=== PATIENT | female | born 1960 | race African-American/Black ===

== ENCOUNTER 2018-06-27 12:09 | Inpatient (IN) | payer MEDICAID ==
[~2018-06-27] VITALS: Ht 162.6 cm; Wt 59.0 kg
[~2018-06-27 12:09] MED LIST: ALEN70TA46 PO; ATOR40TA70 PO; CHOL100046 PO; GABA-529 PO; INSU3INS6 SUBCUT; LOSA50TA20 PO; METF-416 PO
[2018-06-27] MEDS ORDERED: MORPHINE SULFATE 4 MG/ML CPJ (NOT FOR IM USE) IV STA (14:54)
[2018-06-27] MEDS ORDERED: SODIUM CHLORIDE 0.9% 1,000 ML IV ONE (14:54)
[2018-06-27] MEDS ORDERED: ONDANSETRON HCL 4MG/2ML INJ IV STA (14:54)
[2018-06-27] MEDS ORDERED: HYDRALAZINE 20MG/ML VIAL IV ONE ×2 (15:00→17:00)
[2018-06-27] MEDS ORDERED: MORPHINE SULFATE 10 MG/ML CPJ IV NR (15:30)
[2018-06-27 16:06] LABS: BASOPHILS % 0.7 % (0.0-2.0); HEMATOCRIT. 48.8 % (36.0-48.0); HEMOGLOBIN. 15.6 g/dL (12.0-16.0); LYMPHOCYTES % 11.4 % (20.0-50.0); MEAN CORPUSCULAR HEMOGLOBIN 24.1 pg (28.0-32.0); MEAN CORPUSCULAR VOLUME 75.5 fL (81.0-99.0); MEAN PLATELET VOLUME 9.8 fl (7.4-10.4); MONOCYTES % 2.4 % (2.0-8.0); NEUTROPHILS % 85.5 % (40.0-76.0); PLATELET 271 x1000/uL (130-400); RED BLOOD CELL COUNT 6.46 mill/uL (4.2-5.4); RED CELL DISTRIBUTION WIDTH 14.6 % (11.6-14.6)
[2018-06-27 16:10] LABS: CHLORIDE 107 mEq/L (98-107)
[2018-06-27 16:12] LABS: PARTIAL THROMBOPLASTIN TIME 27.6 sec (23.4-31.0); PROTHROMBIN TIME 10.5 sec (9.1-11.1)
[2018-06-27 16:15] LABS: ETHANOL BLOOD < 10 mg/dL
[2018-06-27 17:26] LABS: CLARITY URINE CLEAR (CLEAR); COLOR URINE YELLOW (YELLOW); KETONES URINE 1+ (NEGATIVE); LEUKOCYTE ESTERASE URINE NEGATIVE (NEGATIVE); NITRITE URINE NEGATIVE (NEGATIVE); OCCULT BLOOD URINE 2+ (NEGATIVE); PROTEIN URINE 4+ (NEGATIVE); SPECIFIC GRAVITY URINE 1.022 (1.005-1.030); UROBILINOGEN URINE 0.2 E.U./dL (0.2-1.0)
[2018-06-27] MEDS ORDERED: METRONIDAZOLE 500 MG PREMIX 100 ML IV ONE (17:30)
[2018-06-27] MEDS ORDERED: LEVOFLOXACIN 750MG PREMIX 150 ML IV ONE (17:30)
[2018-06-27 17:44] LABS: *AMPHETAMINES SCREEN URINE NEGATIVE (NEGATIVE)
[2018-06-27 17:45] LABS: *BARBITURATES SCREEN URINE NEGATIVE (NEGATIVE); *BENZODIAZEPINES SCREEN URINE NEGATIVE (NEGATIVE); *COCAINE SCREEN URINE NEGATIVE (NEGATIVE); CANNABINOID URINE SCREEN PRESUMTIVE POSITIVE (NEGATIVE); METHADONE URINE SCREEN NEGATIVE (NEGATIVE); OPIATES URINE SCREEN PRESUMTIVE POSITIVE (NEGATIVE)
[2018-06-27 17:46] LABS: PHENCYCLIDINE URINE SCREEN NEGATIVE (NEGATIVE)
[2018-06-27] MEDS ORDERED: LABETALOL 5MG/ML SYR 20 MG/4 ML SYRINGE IV ONE (18:00)
[2018-06-27] MEDS ORDERED: LABETALOL HCL 20MG/4ML CARPUJECT IV NR (20:15)
[2018-06-27] MEDS ORDERED: CLONIDINE 0.1MG TABLET PO PRN (21:30)
[2018-06-27] MEDS ORDERED: HYDROCODONE/ACETAMINOPHEN 5/325MG TABLET PO PRN (21:30)
[2018-06-27] MEDS ORDERED: IPRATROPIUM/ALBUTEROL 0.5-3(2.5)MG/3ML NEB INH PRN (21:30)
[2018-06-27] MEDS ORDERED: ACETAMINOPHEN 325MG TABLET PO PRN (21:30)
[2018-06-27] MEDS ORDERED: MAGNESIUM/ALUMINUM HYDROXIDE/SIMETHICONE 30ML UDC PO PRN (21:30)
[2018-06-27] MEDS ORDERED: ENOXAPARIN 40MG/0.4ML SYR SUBCUT SCH (23:00)
[2018-06-27 23:08] VITALS: BP 209/116
[2018-06-27] MEDS: INSULIN GLARGINE UD 100 UNITS/ML SYR SUBCUT SCH (23:30)
[2018-06-27] MEDS ORDERED: AMLO10TA80 PO (23:41)
[2018-06-27] MEDS ORDERED: METR500T PO (23:41)
[2018-06-27] MEDS ORDERED: INSLIS SUBCUT (23:41)
[2018-06-27] MEDS ORDERED: CIPR500S3 PO (23:41)
[2018-06-27] MEDS ORDERED: CALC-36 PO (23:41)
[2018-06-28] VITALS (11 sets, daily range): BP systolic 129–187; BP diastolic 60–94
[2018-06-28] MEDS ORDERED: VANCOMYCIN 1 G PREMIX 200 ML IV NR
[2018-06-28] MEDS ORDERED: DEXTROSE 50% WATER 50ML SYRINGE IV PRN
[2018-06-28 00:09] LABS: CREATINE KINASE MB FRACTION < 1.0 ng/mL (0.5-3.6)
[2018-06-28] MEDS: DEXT 5%/0.45% NACL KCL 20MEQ/L 1,000 ML IV SCH ×3 (00:16→21:20)
[2018-06-28] MEDS: ONDANSETRON HCL 4MG/2ML INJ IV PRN ×2 (00:16→05:20)
[2018-06-28] MEDS: HYDRALAZINE 20MG/ML VIAL IV SCH ×4 (00:19→18:12)
[2018-06-28] MEDS: METRONIDAZOLE 500 MG PREMIX 100 ML IV SCH ×3 (00:58→13:16)
[2018-06-28] MEDS: INSULIN GLARGINE UD 100 UNITS/ML SYR SUBCUT SCH ×3 (00:59→22:44)
[2018-06-28 03:17] LABS: CLARITY URINE CLEAR (CLEAR); COLOR URINE YELLOW (YELLOW); KETONES URINE TRACE (NEGATIVE); LEUKOCYTE ESTERASE URINE NEGATIVE (NEGATIVE); NITRITE URINE NEGATIVE (NEGATIVE); OCCULT BLOOD URINE 1+ (NEGATIVE); PROTEIN URINE 4+ (NEGATIVE); SPECIFIC GRAVITY URINE 1.017 (1.005-1.030); UROBILINOGEN URINE 0.2 E.U./dL (0.2-1.0)
[2018-06-28 03:25] LABS: *AMPHETAMINES SCREEN URINE NEGATIVE (NEGATIVE); *BARBITURATES SCREEN URINE NEGATIVE (NEGATIVE)
[2018-06-28 03:26] LABS: *BENZODIAZEPINES SCREEN URINE NEGATIVE (NEGATIVE); *COCAINE SCREEN URINE NEGATIVE (NEGATIVE); METHADONE URINE SCREEN NEGATIVE (NEGATIVE); OPIATES URINE SCREEN PRESUMTIVE POSITIVE (NEGATIVE); PHENCYCLIDINE URINE SCREEN NEGATIVE (NEGATIVE)
[2018-06-28 03:27] LABS: CANNABINOID URINE SCREEN PRESUMTIVE POSITIVE (NEGATIVE)
[2018-06-28] MEDS: BLOOD SUGAR DIAGNOSTIC STRIP TEST SCH ×4 (06:13→20:23)
[2018-06-28] MEDS: LOSARTAN POTASSIUM 25 MG TABLET PO SCH (07:40)
[2018-06-28] MEDS: AMLODIPINE 5MG TABLET PO SCH ×2 (07:40→21:20)
[2018-06-28] MEDS: FAMOTIDINE 20MG/2ML VIAL IV SCH ×2 (07:40→21:19)
[2018-06-28] MEDS: ATORVASTATIN CALCIUM 40MG TABLET PO SCH (07:40)
[2018-06-28] MEDS: HYDROMORPHONE HCL/PF 2MG/ML CPJ IV PRN (07:44)
[2018-06-28] MEDS: INSULIN LISPRO 100 UNITS/ML SUBCUT SCH ×4 (07:57→20:23)
[2018-06-28] MEDS ORDERED: VANCOMYCIN 1 G PREMIX 200 ML IV SCH (08:00)
[2018-06-28 08:07] LABS: BASOPHILS % 0.5 % (0.0-2.0); HEMATOCRIT. 43.9 % (36.0-48.0); MEAN CORPUSCULAR HEMOGLOBIN 23.8 pg (28.0-32.0); MEAN CORPUSCULAR VOLUME 74.5 fL (81.0-99.0); MEAN PLATELET VOLUME 9.5 fl (7.4-10.4); MONOCYTES % 6.3 % (2.0-8.0); NEUTROPHILS % 81.2 % (40.0-76.0); PLATELET 274 x1000/uL (130-400); RED BLOOD CELL COUNT 5.89 mill/uL (4.2-5.4); RED CELL DISTRIBUTION WIDTH 14.2 % (11.6-14.6)
[2018-06-28] MEDS: METOPROLOL TARTRATE 50MG TABLET PO SCH ×2 (08:37→21:19)
[2018-06-28 09:03] LABS: CHLORIDE 105 mEq/L (98-107)
[2018-06-28 09:33] LABS: CREATINE KINASE MB FRACTION < 1.0 ng/mL (0.5-3.6)
[2018-06-28] MEDS ORDERED: CLONIDINE HCL 0.2MG/24HR PATCH TD SCH (12:00)
[2018-06-28] MEDS: ENOXAPARIN 40MG/0.4ML SYR SUBCUT SCH (14:48)
[2018-06-28] MEDS: VANCOMYCIN 750 MG PREMIX 150 ML IV SCH (21:19)
[2018-06-29] MEDS: METRONIDAZOLE 500 MG PREMIX 100 ML IV SCH ×4 (00:31→21:32)
[2018-06-29] MEDS: HYDRALAZINE 20MG/ML VIAL IV SCH ×4 (00:32→18:25)
[2018-06-29 03:58] VITALS: BP 123/66
[2018-06-29] MEDS: BLOOD SUGAR DIAGNOSTIC STRIP TEST SCH ×4 (06:26→20:39)
[2018-06-29] MEDS: DEXT 5%/0.45% NACL KCL 20MEQ/L 1,000 ML IV SCH ×2 (06:27→19:26)
[2018-06-29 08:00] VITALS: BP 124/58
[2018-06-29] MEDS: INSULIN LISPRO 100 UNITS/ML SUBCUT SCH ×4 (08:13→20:40)
[2018-06-29] MEDS: FAMOTIDINE 20MG/2ML VIAL IV SCH (08:14)
[2018-06-29] MEDS: VANCOMYCIN 750 MG PREMIX 150 ML IV SCH ×2 (08:14→19:26)
[2018-06-29] MEDS: ENOXAPARIN 40MG/0.4ML SYR SUBCUT SCH (08:15)
[2018-06-29] MEDS: ATORVASTATIN CALCIUM 40MG TABLET PO SCH (08:15)
[2018-06-29] MEDS: AMLODIPINE 5MG TABLET PO SCH ×2 (08:16→20:37)
[2018-06-29] MEDS: METOPROLOL TARTRATE 50MG TABLET PO SCH ×2 (08:17→20:33)
[2018-06-29] MEDS: LOSARTAN POTASSIUM 25 MG TABLET PO SCH (08:17)
[2018-06-29] MEDS: ONDANSETRON HCL 4MG/2ML INJ IV PRN ×2 (08:28→15:41)
[2018-06-29 09:11] LABS: EOSINOPHILS % 0.6 % (0.0-5.0); HEMOGLOBIN. 12.9 g/dL (12.0-16.0); LYMPHOCYTES % 29.8 % (20.0-50.0); MEAN CORPUSCULAR HEMOGLOBIN 23.6 pg (28.0-32.0); MEAN CORPUSCULAR VOLUME 74.8 fL (81.0-99.0); MEAN PLATELET VOLUME 10.3 fl (7.4-10.4); MONOCYTES % 6.6 % (2.0-8.0); PLATELET 255 x1000/uL (130-400); RED BLOOD CELL COUNT 5.48 mill/uL (4.2-5.4)
[2018-06-29] MEDS: INSULIN GLARGINE UD 100 UNITS/ML SYR SUBCUT SCH ×2 (10:23→20:43)
[2018-06-29 12:00] VITALS: BP 121/62
[2018-06-29 13:52] LABS: HEPATITIS B SURFACE ANTIGEN NEGATIVE
[2018-06-29 14:21] LABS: HEPATITIS A AB IGM NEGATIVE (NEGATIVE)
[2018-06-29 16:00] VITALS: BP 128/60
[2018-06-29 19:58] VITALS: BP 126/55
[2018-06-29 23:57] VITALS: BP 138/69
[2018-06-30] MEDS: DEXT 5%/0.45% NACL KCL 20MEQ/L 1,000 ML IV SCH ×3 (00:35→13:07)
[2018-06-30 03:50] VITALS: BP 137/62
[2018-06-30] MEDS: HYDROMORPHONE HCL/PF 2MG/ML CPJ IV PRN ×2 (04:04→08:21)
[2018-06-30] MEDS: ONDANSETRON HCL 4MG/2ML INJ IV PRN ×3 (04:05→13:06)
[2018-06-30] MEDS: HYDRALAZINE 20MG/ML VIAL IV SCH ×4 (05:26→18:04)
[2018-06-30] MEDS: METRONIDAZOLE 500 MG PREMIX 100 ML IV SCH ×3 (05:27→22:56)
[2018-06-30] MEDS: BLOOD SUGAR DIAGNOSTIC STRIP TEST SCH ×4 (06:24→21:00)
[2018-06-30] MEDS: AMLODIPINE 5MG TABLET PO SCH ×2 (08:18→22:57)
[2018-06-30] MEDS: ENOXAPARIN 40MG/0.4ML SYR SUBCUT SCH (08:18)
[2018-06-30] MEDS: VANCOMYCIN 750 MG PREMIX 150 ML IV SCH ×2 (08:18→22:56)
[2018-06-30] MEDS: FAMOTIDINE 20MG/2ML VIAL IV SCH (08:19)
[2018-06-30] MEDS: LOSARTAN POTASSIUM 25 MG TABLET PO SCH (08:19)
[2018-06-30] MEDS: METOPROLOL TARTRATE 50MG TABLET PO SCH ×2 (08:19→22:58)
[2018-06-30] MEDS: INSULIN LISPRO 100 UNITS/ML SUBCUT SCH ×4 (08:31→21:00)
[2018-06-30 10:08] LABS: BASOPHILS % 0.9 % (0.0-2.0); EOSINOPHILS % 0.5 % (0.0-5.0); HEMATOCRIT. 42.9 % (36.0-48.0); HEMOGLOBIN. 13.6 g/dL (12.0-16.0); MEAN CORPUSCULAR HEMOGLOBIN 23.8 pg (28.0-32.0); MEAN CORPUSCULAR VOLUME 75.3 fL (81.0-99.0); MEAN PLATELET VOLUME 9.8 fl (7.4-10.4); MONOCYTES % 10.1 % (2.0-8.0); NEUTROPHILS % 51.5 % (40.0-76.0); PLATELET 252 x1000/uL (130-400); RED BLOOD CELL COUNT 5.69 mill/uL (4.2-5.4)
[2018-06-30] MEDS: ATORVASTATIN CALCIUM 40MG TABLET PO SCH (11:28)
[2018-06-30] MEDS: INSULIN GLARGINE UD 100 UNITS/ML SYR SUBCUT SCH (11:30)
[2018-06-30 12:00] VITALS: BP 144/69
[2018-06-30] MEDS ORDERED: NA PHOS,M-B/NA PHOS,DI-BA ENEMA 118ML PR PRN (12:00)
[2018-06-30] MEDS ORDERED: LACTULOSE 20G/30ML UDC PO PRN (12:00)
[2018-06-30 16:00] VITALS: BP 144/77
[2018-06-30 20:00] VITALS: BP 129/60
[2018-07-01] VITALS: BP 155/72
[2018-07-01] MEDS: HYDRALAZINE 20MG/ML VIAL IV SCH ×3 (00:20→12:00)
[2018-07-01] MEDS: INSULIN GLARGINE UD 100 UNITS/ML SYR SUBCUT SCH ×2 (01:18→09:28)
[2018-07-01] MEDS: METRONIDAZOLE 500 MG PREMIX 100 ML IV SCH ×2 (06:00→13:35)
[2018-07-01 06:22] LABS: BASOPHILS % 1.4 % (0.0-2.0); HEMATOCRIT. 38.3 % (36.0-48.0); HEMOGLOBIN. 12.2 g/dL (12.0-16.0); LYMPHOCYTES % 37.4 % (20.0-50.0); MEAN CORPUSCULAR HEMOGLOBIN 24.1 pg (28.0-32.0); MEAN PLATELET VOLUME 9.6 fl (7.4-10.4); MONOCYTES % 11.7 % (2.0-8.0); NEUTROPHILS % 47.5 % (40.0-76.0); PLATELET 198 x1000/uL (130-400); RED BLOOD CELL COUNT 5.04 mill/uL (4.2-5.4); RED CELL DISTRIBUTION WIDTH 14.3 % (11.6-14.6)
[2018-07-01] MEDS: BLOOD SUGAR DIAGNOSTIC STRIP TEST SCH ×2 (06:23→11:57)
[2018-07-01] MEDS: DEXT 5%/0.45% NACL KCL 20MEQ/L 1,000 ML IV SCH (07:00)
[2018-07-01] MEDS: INSULIN LISPRO 100 UNITS/ML SUBCUT SCH ×2 (07:50→12:10)
[2018-07-01 08:00] VITALS: BP 142/91
[2018-07-01] MEDS: VANCOMYCIN 750 MG PREMIX 150 ML IV SCH (08:00)
[2018-07-01] MEDS: FAMOTIDINE 20MG/2ML VIAL IV SCH (09:00)
[2018-07-01] MEDS: AMLODIPINE 5MG TABLET PO SCH (09:22)
[2018-07-01] MEDS: ATORVASTATIN CALCIUM 40MG TABLET PO SCH (09:23)
[2018-07-01] MEDS: LOSARTAN POTASSIUM 25 MG TABLET PO SCH (09:23)
[2018-07-01] MEDS: METOPROLOL TARTRATE 50MG TABLET PO SCH (09:23)
[2018-07-01] MEDS: ENOXAPARIN 40MG/0.4ML SYR SUBCUT SCH (09:23)
[2018-07-01 11:45] VITALS: BP 137/58
[2018-07-01] MEDS ORDERED: VANCOMYCIN 1 G PREMIX 200 ML IV SCH (23:00)
[2018-07-02 09:06] LABS: COMPLEMENT C3 141 mg/dL (82-167)
[2018-07-02 13:11] LABS: ANTI-NUCLEAR ANTIBODIES DIRECT Negative (Negative)
== END 2018-07-01 16:50 | disposition home or self-care (01) | DRG 199 ==
LOC: ER 12:09 → 6WST 18:02 → EDBEDREQ 18:06 → ENRESERV 18:51
PROVIDERS: ADMIT Internal Medicine Geriatric Medicine; ATTEND Internal Medicine Geriatric Medicine
DX: I16.0 Hypertensive urgency (principal); E87.2 Acidosis; E44.0 Moderate protein-calorie malnutrition; K57.92 Diverticulitis of intestine, part unspecified, without perforation or abscess without bleeding; E11.9 Type 2 diabetes mellitus without complications; B19.20 Unspecified viral hepatitis C without hepatic coma; D63.8 Anemia in other chronic diseases classified elsewhere; D72.829 Elevated white blood cell count, unspecified; N39.0 Urinary tract infection, site not specified; K80.20 Calculus of gallbladder without cholecystitis without obstruction; E78.5 Hyperlipidemia, unspecified; K52.9 Noninfective gastroenteritis and colitis, unspecified; I10 Essential (primary) hypertension; F12.90 Cannabis use, unspecified, uncomplicated; F17.210 Nicotine dependence, cigarettes, uncomplicated; Z79.4 Long term (current) use of insulin; Z79.82 Long term (current) use of aspirin; Z90.710 Acquired absence of both cervix and uterus; Z79.84 Long term (current) use of oral hypoglycemic drugs; Z79.899 Other long term (current) drug therapy
CPT/HCPCS: 36415; 71045; 74176; 76700; 80048; 80061; 80202; 80305; 82553; 82575; 82962; 83036; 84156; 84484; 86038; 86160; 86592; 86705; 86709; 86803; 86850; 86900; 87340; 93005; 93970; 96365; 96366; 96367; 97116; 97162; 99285; G0482; J0360; J1170; J1650; J1815; J1956; J2270; J2405; J3370; J3490; J7030